=== PATIENT | male | born 1985 | race Caucasian/White ===

== ENCOUNTER 2017-03-31 03:34 | Emergency (ER) | payer BC ==
--- NOTE | 2017-03-31 04:20 | EDM.PDOC ---
ED HPI GENERAL MEDICAL PROBLEM - General Chief Complaint: Back Pain or Injury Stated Complaint: BACK PAIN Time Seen by Provider: 03/31/17 04:17 Source of Information: Reports: Patient History Limitations: Reports: No Limitations - History of Present Illness INITIAL COMMENTS - FREE TEXT/NARRATIVE: 31 year old male presents to ED with complaint of lower back pain. Pain began 3- 4 weeks. He denies any associated trauma that may have initiated the pain. Pain is shocking quality and occasionally radiates down his left leg to above the knee. Pain worsened significantly today and he is having difficulty with sitting , standing or laying down, therefore he decided to present to the ED. He denies any significant tenderness along the spine and denies any loss of bladder or bowel control. He does not have a PCP and this is his first time seeking care for the back pain. Lower Posterior Back Pain Score (Numeric/FACES): 8 - Related Data Allergies Allergy/AdvReac Type Severity Reaction Status Date / Time Penicillins Allergy Anaphylactic Verified 03/31/17 04:28 Shock Home Meds: Home Meds Orphenadrine [Norflex] 100 mg PO BID 5 Days #10 tab.er 03/31/17 [Rx] ED ROS GENERAL - Review of Systems Review Of Systems: See Below Constitutional: Reports: No Symptoms HEENT: Reports: No Symptoms Respiratory: Reports: No Symptoms Cardiovascular: Reports: No Symptoms Endocrine: Reports: No Symptoms GI/Abdominal: Reports: No Symptoms : Reports: No Symptoms Musculoskeletal: Reports: Back Pain Skin: Reports: No Symptoms Neurological: Reports: No Symptoms Psychiatric: Reports: No Symptoms Hematologic/Lymphatic: Reports: No Symptoms Immunologic: Reports: No Symptoms ED EXAM,LOWER BACK PAIN/INJURY - Physical Exam Exam: See Below General Appearance: Alert, WD/WN Eye Exam: Bilateral Eye: PERRL Ears: Normal External Exam, Normal Canal, Hearing Grossly Normal, Normal TMs Nose: Normal Inspection, Normal Mucosa, No Blood Throat/Mouth: Normal Inspection, Normal Oropharynx, No Airway Compromise Head: Atraumatic, Normocephalic Neck: Normal Inspection, Supple, Non-Tender, Full Range of Motion Respiratory/Chest: No Respiratory Distress, Lungs Clear, Normal Breath Sounds, No Accessory Muscle Use, Chest Non-Tender Cardiovascular: Normal Peripheral Pulses, Regular Rate, Rhythm, No JVD GI/Abdominal: Normal Bowel Sounds, Soft, Non-Tender Back Exam: Other (pain with lumbar flexion. SLR negative BL. mild paravertebral tenderness BL. no palpable step-offs. ) Extremities: Normal Inspection, Normal Capillary Refill Neurological: Alert, Normal Mood/Affect, Normal Dorsiflexion, CN II-XII Intact, Normal Plantar Flexion, Normal Gait, Normal Reflexes, No Motor/Sensory Deficits , Oriented x 3 Skin Exam: Warm, Dry, Intact Lymphatic: No Adenopathy Course - Vital Signs Last Recorded V/S: Last Vital Signs Temp 36.8 C 03/31/17 04:18 Pulse 68 03/31/17 04:18 Resp 16 03/31/17 04:18 BP 109/69 03/31/17 04:18 Pulse Ox 96 03/31/17 04:18 - Orders/Labs/Meds Orders: Active Orders 24 hr Category Date Time Status Lumbar Spine 2 or 3V [CR] Stat Exams 03/31/17 04:38 Taken Orphenadrine [Norflex] Med 03/31/17 04:30 Active 60 mg IM Q12H Medication Orders Orphenadrine Citrate (Norflex) 60 mg IM Q12H ARYA Last Admin: 03/31/17 04:54 Dose: Not Given Meds: Medications Generic Name Dose Route Start Last Admin Trade Name Freq PRN Reason Stop Dose Admin Orphenadrine Citrate 60 mg 03/31/17 04:30 03/31/17 04:54 Norflex IM Not Given Q12H ARYA Discontinued Medications Generic Name Dose Route Start Last Admin Trade Name Freq PRN Reason Stop Dose Admin Ketorolac Tromethamine 30 mg 03/31/17 04:27 03/31/17 04:54 Toradol IM 03/31/17 04:28 Not Given ONETIME ONE Departure - Departure Time of Disposition: 06:21 Disposition: Home, Self-Care 01 Condition: Good Clinical Impression: Sciatica Acute lumbar myofascial strain Qualifiers: Encounter type: initial encounter Qualified Code(s): S39.012A - Strain of muscle, fascia and tendon of lower back, initial encounter - Discharge Information Prescriptions: Orphenadrine [Norflex] 100 mg PO BID 5 Days #10 tab.er Instructions: Sciatica, [id number], Back Pain, Adult, [id number] Referrals: PCP,None [Primary Care Provider] - Forms: ED Department Discharge Additional Instructions: The following information is given to patients seen in the emergency department who are being discharged to home. This information is to outline your options for follow-up care. We provide all patients seen in our emergency department with a follow-up referral. The need for follow-up, as well as the timing and circumstances, are variable depending upon the specifics of your emergency department visit. If you don't have a primary care physician on staff, we will provide you with a referral. We always advise you to contact your personal physician following an emergency department visit to inform them of the circumstance of the visit and for follow-up with them and/or the need for any referrals to a consulting specialist. The emergency department will also refer you to a specialist when appropriate. This referral assures that you have the opportunity for followup care with a specialist. All of these measure are taken in an effort to provide you with optimal care, which includes your followup. Under all circumstances we always encourage you to contact your private physician who remains a resource for coordinating your care. When calling for followup care, please make the office aware that this follow-up is from your recent emergency room visit. If for any reason you are refused follow-up, please contact the [facility] emergency department at and asked to speak to the emergency department charge nurse. - Problem List Review Problem List Initiated/Reviewed/Updated: Yes - My Orders Last 24 Hours: My Active Orders 03/31/17 04:30 Orphenadrine [Norflex] 60 mg IM Q12H - Assessment/Plan Last 24 Hours: My Active Orders 03/31/17 04:30 Orphenadrine [Norflex] 60 mg IM Q12H Plan: Diagnostics: Lumbar XR Therapeutics: Toradol 30 mg IM single dose, Orphenadrine 60 mg IM single dose Assessment: 1. Acute Lumbosacral Strain -no visible spinal deformities, no spinal tenderness -no loss of bladder/bowel control -no history of trauma -Lumbar XR shows no acute changes 2. Sciatica, secondary to #1 Plan: Provided patient education and reassurance. Explained natural course of condition. Recommended he avoid prolonged immobilization. Prescribed Orphenadrine 100 mg PO BID for 5 days. Recommended following-up with PCP for rferral to PT if no improvement of symptoms within 1-2 weeks. Recommended Using OTC NSAID's or Acetaminophen for pain control.
[2017-03-31] MEDS ORDERED: Ketorolac 30 MG/ML SDV IM ONE (04:27)
--- NOTE | 2017-03-31 10:04 | CR ---
EXAM DATE: 03/31/17 PATIENT'S AGE: 31 Patient: HOA ENCISO Facility: [place], [place] Site . Site : 1985 Study: XRay Spine Lumbar [id number] 5:46:08 AM Ordering Physician: Doctor Roy Final Report: INDICATION: Low back pain TECHNIQUE: Lumbar spine 3 view. COMPARISON: None FINDINGS: Bones: Alignment is normal. No fractures or significant bone lesions. Joints: Disc spaces and facets are unremarkable. Soft tissues: Unremarkable. IMPRESSION: Unremarkable lumbar spine. Dictated by Mirta Valderrama MD @ Mar 31 2017 6:13AM (Electronic Signature) Report Signed by Proxy. MIGUEL ANGEL
== END 2017-03-31 06:40 | disposition home or self-care (01) ==
LOC: MW.ED 03:34
DX: S39.012A Strain of muscle, fascia and tendon of lower back, initial encounter (principal); M54.40 Lumbago with sciatica, unspecified side; Z88.0 Allergy status to penicillin; X58.XXXA Exposure to other specified factors, initial encounter
CPT/HCPCS: 72100; 72100-26; 99283; 99284

== ENCOUNTER 2017-06-20 02:23 | Emergency (ER) | payer BC ==
--- NOTE | 2017-06-20 02:36 | EDM.PDOC ---
ED HPI GENERAL MEDICAL PROBLEM - General Stated Complaint: BACK PAIN Time Seen by Provider: 06/20/17 02:35 Source of Information: Reports: Patient History Limitations: Reports: No Limitations - History of Present Illness INITIAL COMMENTS - FREE TEXT/NARRATIVE: HISTORY AND PHYSICAL: History of present illness: [31-year-old male presenting in emergency department with chief complaint of lower back pain radiating into his left lower extremity. Patient states that he has had intermittent back pain for many years. He has been once told he has sciatica. States it today came in because he had significantly more pain and was having difficulty with sleeping and walking. Pain is primarily located in the left lumbar sparing radiating into the posterior aspect of the left leg down to the left calf. He denies any bowel or bladder incontinence. Denies any decreased strength or sensation. He has no other symptoms and currently denies any chest pain, palpitations, shortness breath, syncopal episodes, or focal neurologic deficits.] Review of systems: As per history of present illness and below otherwise all systems reviewed and negative. Past medical history: As per history of present illness and as reviewed below otherwise noncontributory. Surgical history: As per history of present illness and as reviewed below otherwise noncontributory. Social history: No reported history of drug or alcohol abuse. Family history: As per history of present illness and as reviewed below otherwise noncontributory. Physical exam: HEENT: Atraumatic, normocephalic, pupils reactive, negative for conjunctival pallor or scleral icterus, mucous membranes moist, throat clear, neck supple, nontender, trachea midline. Lungs: Clear to auscultation, breath sounds equal bilaterally, chest nontender. Heart: S1S2, regular, negative for clicks, rubs, or JVD. Abdomen: Soft, nondistended, nontender. Negative for masses or hepatosplenomegaly. Negative for costovertebral tenderness. Pelvis: Stable nontender. Genitourinary: Deferred. Rectal: Deferred. Extremities: Atraumatic, negative for cords or calf pain. Neurovascular unremarkable. Neuro: Awake, alert, oriented. Cranial nerves II through XII unremarkable. Cerebellum unremarkable. Motor and sensory unremarkable throughout. Exam nonfocal. Diagnostics: [] Therapeutics: [Portable 6 mg IM] Impression: [Lumbar back pain/sciatica] Plan: [Patient was given 60 mg Toradol IM as well as a prescription for Flexeril. He was told to follow-up with primary care physician and that he should participate in physical therapy once he is established with a primary care physician.] - Related Data Allergies Allergy/AdvReac Type Severity Reaction Status Date / Time Penicillins Allergy Anaphylactic Verified 03/31/17 04:28 Shock Home Meds: Home Meds Orphenadrine [Norflex] 100 mg PO BID 5 Days #10 tab.er 03/31/17 [Rx] Cyclobenzaprine [Flexeril] 10 mg PO TID #12 tab 06/20/17 [Rx] Past Medical History Other Cardiovascular History: Some sort of cardiac issue is unclear as to wha it is "[place]" Other Musculoskeletal History: Right ankle sugery X 3 Social & Family History - Tobacco Use Used Tobacco, but Quit: No Second Hand Smoke Exposure: No - Caffeine Use Caffeine Use: Reports: Soda - Recreational Drug Use Recreational Drug Use: No ED ROS GENERAL - Review of Systems Review Of Systems: See Below ED EXAM, GENERAL - Physical Exam Exam: See Below Course - Orders/Labs/Meds Meds: Medications Discontinued Medications Generic Name Dose Route Start Last Admin Trade Name Freq PRN Reason Stop Dose Admin Ketorolac Tromethamine 60 mg 06/20/17 02:46 Toradol IM 06/20/17 02:47 ONETIME ONE Departure - Departure Time of Disposition: 02:59 Disposition: Home, Self-Care 01 Condition: Good Clinical Impression: Sciatica - Discharge Information Prescriptions: Cyclobenzaprine [Flexeril] 10 mg PO TID #12 tab Instructions: Back Pain, Adult, Sciatica, Sciatica, [id number] Referrals: PCP,None [Primary Care Provider] -
[2017-06-20] MEDS ORDERED: Ketorolac 60 MG/2 ML SDV IM ONE (02:46)
== END 2017-06-20 03:35 | disposition home or self-care (01) ==
LOC: MW.ED 02:23
DX: M54.42 Lumbago with sciatica, left side (principal); Z88.0 Allergy status to penicillin
CPT/HCPCS: 96372; 99283; J1885

== ENCOUNTER 2017-09-30 17:00 | Emergency (ER) | payer BC ==
[2017-09-30] MEDS ORDERED: Sodium Chloride 0.9% 10 ML Syringe FLUSH PRN (17:08)
[2017-09-30] MEDS ORDERED: Sodium Chloride 0.9% 2.5 ML Syringe FLUSH PRN (17:08)
[2017-09-30] MEDS ORDERED: Aspirin 325 MG Tab PO ONE (17:26)
[2017-09-30 17:57] LABS: CHLORIDE,CL 102 mmol/L (98-107); SODIUM,NA 137 mmol/L (136-148)
--- NOTE | 2017-09-30 18:15 | EDM.PDOC ---
ED HPI GENERAL MEDICAL PROBLEM - General Chief Complaint: Neuro Symptoms/Deficits Stated Complaint: CHEST PAIN, DIZZY, SHAKY Time Seen by Provider: 09/30/17 17:09 Source of Information: Reports: Patient History Limitations: Reports: No Limitations - History of Present Illness INITIAL COMMENTS - FREE TEXT/NARRATIVE: HISTORY AND PHYSICAL: [] 32-year-old male patient who presented initially chest pain dizziness History of Present Illness: []This started approximately half hour prior to coming to the emergency room he had just gotten off. Was eating a hamburger and driving Extreme vertigo with turning his head Review of Systems: As per history of present illness and below otherwise all systems reviewed and negative. Past medical history: As per history of present illness and as reviewed below otherwise noncontributory. Surgical history: As per history of present illness and as reviewed below otherwise noncontributory. Social history: No reported history of drug or alcohol abuse. Family history: As per history of present illness and as reviewed below otherwise noncontributory. Physical exam: Alert oriented gentleman who is speaking well in full sentences without shortness of breath he is nontoxic in appearance He is avoiding turning his head while speaking HEENT: Atraumatic, normocehpalic, pupils reactive, negative for conjunctival pallor or scleral icterus, mucous membranes moist, throat clear, neck supple, nontender, trachea midline. Tympanic membrane with effusion on the left bubbles are visualized no erythema Lungs: Clear to auscultation, breath sounds equal bilaterally, chest non tender. Heart: S1S2, regular, negative for clicks, rubs, or JVD. Abdomen: Soft, nondistended, nontender. Negative for masses or hepatossplenmegaly. Negative for costovertebral tenderness. Pelvis: Stable nontender. Genitourinary: Deferred. Rectal: Deferred Extremities: Atraumatic, negative for cords or calf pain. Neurovascular unremarkable. Neuro: Awake, alert, oriented. Cranial nerves II through XII unremarkable. Cerebellum unremarkable. Motor and sensory unremarkable throughout. Exam nonfocal. Discussed with the patient that his EKG shows tachycardia rhythm. Discussed that the troponin level was elevated. At this level can be elevated for other conditions however at this time he needs to be monitored closely have asked that he except a transfer to [facility] for cardiology is available. Patient is agreeable to this course of action he is quite anxious Discussed this case with Dr. Neri Rudd at [facility] who has accepted this patient for transfer. Question Dr. Rudd if you should give Lovenox and in case this person has a pericarditis he requested I not give Lovenox. Diagnostics: []CBC CMP troponin amylase lipase UA urine drug screen EKG chest x-ray Therapeutics: []Normal saline Aspirin Impression: []Vertigo Elevated troponin Plan: []Transfer per EMS to [facility] Definitive disposition and diagnosis as appropriate pending reevaluation and review of above. Onset: Today, Sudden - Related Data Allergies Allergy/AdvReac Type Severity Reaction Status Date / Time Penicillins Allergy Anaphylactic Verified 09/30/17 17:10 Shock Home Meds: Home Meds . [No Known Home Meds] 09/30/17 [History] Past Medical History - Past Health History Medical/Surgical History: Denies Medical/Surgical History HEENT History: Reports: None Cardiovascular History: Reports: None Other Cardiovascular History: Some sort of cardiac issue is unclear as to what it is "[place]", pt states this is a hole in his heart Respiratory History: Reports: None Gastrointestinal History: Reports: None Genitourinary History: Reports: None Other Musculoskeletal History: Right ankle sugery X 3 Neurological History: Reports: None Psychiatric History: Reports: None Endocrine/Metabolic History: Reports: None - Infectious Disease History Infectious Disease History: Reports: None - Past Surgical History Male Surgical History: Reports: None Social & Family History - Family History Family Medical History: Noncontributory - Tobacco Use Smoking Status *Q: Never Smoker Years of Tobacco use: 4 Packs/Tins Daily: 1 - Caffeine Use Caffeine Use: Reports: Soda - Recreational Drug Use Recreational Drug Use: No ED ROS GENERAL - Review of Systems Review Of Systems: ROS reveals no pertinent complaints other than HPI. ED EXAM, NEURO - Physical Exam Exam: See Below (see dictation) EKG INTERPRETATION EKG Date: 09/30/17 Rhythm: Other (Sinus tachycardia) Rate (Beats/Min): 101 Comparison: NA - No Prior EKG Course - Vital Signs Last Recorded V/S: Last Vital Signs Temp 36.8 C 09/30/17 17:05 Pulse 99 09/30/17 17:05 Resp 18 09/30/17 17:05 BP 154/86 H 09/30/17 17:05 Pulse Ox 97 09/30/17 17:05 - Orders/Labs/Meds Orders: Active Orders 24 hr Category Date Time Status Cardiac Monitoring [RC] . DIRECTED Care 09/30/17 17:08 Active EKG 12 Lead [EKG Documentation Completion] [RC] STAT Care 09/30/17 17:07 Active EKG Documentation Completion [RC] STAT Care 09/30/17 17:08 Active Oxygen Therapy, ED [RC] ASDIRECTED Care 09/30/17 17:08 Active Chest 1V Frontal [CR] Stat Exams 09/30/17 17:09 Ordered Sinus Comp Min 3V [CR] Stat Exams 09/30/17 17:45 Ordered CULTURE STREP A CONFIRMATION [RM] Stat Lab 09/30/17 17:30 Results CULTURE URINE [RM] Stat Lab 09/30/17 17:30 Ordered DRUG SCREEN, URINE [URCHEM] Stat Lab 09/30/17 17:30 Ordered STREP SCRN A RAPID W CULT CONF [RM] Stat Lab 09/30/17 17:30 Ordered UA W/MICROSCOPIC [URIN] Stat Lab 09/30/17 17:30 Ordered Sodium Chloride 0.9% [Saline Flush] Med 09/30/17 17:08 Active 10 ml FLUSH ASDIRECTED PRN Sodium Chloride 0.9% [Saline Flush] Med 09/30/17 17:08 Active 2.5 ml FLUSH ASDIRECTED PRN Saline Lock Insert [OM.PC] Stat Oth 09/30/17 17:08 Ordered Medication Orders Sodium Chloride (Saline Flush) 10 ml FLUSH ASDIRECTED PRN PRN Reason: Keep Vein Open Sodium Chloride (Saline Flush) 2.5 ml FLUSH ASDIRECTED PRN PRN Reason: Keep Vein Open Labs: Laboratory Tests 09/30/17 09/30/17 09/30/17 Range/Units 17:18 17:18 17:18 WBC 7.49 (4.0-11.0) K/uL RBC 5.49 (4.50-5.90) M/uL Hgb 16.0 (13.0-17.0) g/dL Hct 46.0 (38.0-50.0) % MCV 83.8 (80.0-98.0) fL MCH 29.1 (27.0-32.0) pg MCHC 34.8 (31.0-37.0) g/dL RDW Std Deviation 37.6 (28.0-62.0) fl RDW Coeff of Nelson 12 (11.0-15.0) % Plt Count 237 (150-400) K/uL MPV 9.50 (7.40-12.00) fL Neut % (Auto) 60.4 (48.0-80.0) % Lymph % (Auto) 29.6 (16.0-40.0) % Hendry % (Auto) 8.0 (0.0-15.0) % Eos % (Auto) 1.9 (0.0-7.0) % Baso % (Auto) 0.1 (0.0-1.5) % Neut # (Auto) 4.5 (1.4-5.7) K/uL Lymph # (Auto) 2.2 (0.6-2.4) K/uL Hendry # (Auto) 0.6 (0.0-0.8) K/uL Eos # (Auto) 0.1 (0.0-0.7) K/uL Baso # (Auto) 0.0 (0.0-0.1) K/uL Nucleated RBC % 0.0 /100WBC Nucleated RBCs # 0 K/uL INR Sodium 137 (136-148) mmol/L Potassium 3.8 (3.5-5.1) mmol/L Chloride 102 (98-107) mmol/L Carbon Dioxide 26.0 (21.0-32.0) mmol/L BUN 14 (7.0-18.0) mg/dL Creatinine 1.1 (0.8-1.3) mg/dL Est Cr Clr Drug Dosing 94.14 mL/min Estimated GFR (MDRD) > 60.0 ml/min Glucose 137 H (74-106) mg/dL Calcium 8.5 (8.5-10.1) mg/dL Total Bilirubin 0.8 (0.2-1.0) mg/dL AST 36 (15-37) IU/L ALT 54 (14-63) IU/L Alkaline Phosphatase 54 (46-116) U/L Ammonia <17 L (19-54) ug/dL Troponin I 0.161 H* (0.000-0.056) ng/mL Total Protein 8.0 (6.4-8.2) g/dL Albumin 3.9 (3.4-5.0) g/dL Globulin 4.1 H (2.0-3.5) g/dL Albumin/Globulin Ratio 1.0 L (1.3-2.8) Amylase 22 L (25-115) U/L Lipase 87 (73-393) U/L Urine Color Urine Appearance Urine pH (5.0-8.0) Ur Specific Randolph (1.001-1.035) Urine Protein (NEGATIVE) mg/dL Urine Glucose (UA) (NEGATIVE) mg/dL Urine Ketones (NEGATIVE) mg/dL Urine Occult Blood (NEGATIVE) Urine Nitrite (NEGATIVE) Urine Bilirubin (NEGATIVE) Urine Urobilinogen (<2.0) EU/dL Ur Leukocyte Esterase (NEGATIVE) Urine Opiates Screen (NEGATIVE) Ur Oxycodone Screen (NEGATIVE) Urine Methadone Screen (NEGATIVE) Ur Barbiturates Screen (NEGATIVE) Ur Phencyclidine Scrn (NEGATIVE) Ur Amphetamine Screen (NEGATIVE) U Methamphetamines Scrn (NEGATIVE) U Benzodiazepines Scrn (NEGATIVE) U Cocaine Metab Screen (NEGATIVE) U Marijuana (THC) Screen (NEGATIVE) 09/30/17 09/30/17 09/30/17 Range/Units 17:18 17:30 17:30 WBC (4.0-11.0) K/uL RBC (4.50-5.90) M/uL Hgb (13.0-17.0) g/dL Hct (38.0-50.0) % MCV (80.0-98.0) fL MCH (27.0-32.0) pg MCHC (31.0-37.0) g/dL RDW Std Deviation (28.0-62.0) fl RDW Coeff of Nelson (11.0-15.0) % Plt Count (150-400) K/uL MPV (7.40-12.00) fL Neut % (Auto) (48.0-80.0) % Lymph % (Auto) (16.0-40.0) % Hendry % (Auto) (0.0-15.0) % Eos % (Auto) (0.0-7.0) % Baso % (Auto) (0.0-1.5) % Neut # (Auto) (1.4-5.7) K/uL Lymph # (Auto) (0.6-2.4) K/uL Hendry # (Auto) (0.0-0.8) K/uL Eos # (Auto) (0.0-0.7) K/uL Baso # (Auto) (0.0-0.1) K/uL Nucleated RBC % /100WBC Nucleated RBCs # K/uL INR 1.05 Sodium (136-148) mmol/L Potassium (3.5-5.1) mmol/L Chloride (98-107) mmol/L Carbon Dioxide (21.0-32.0) mmol/L BUN (7.0-18.0) mg/dL Creatinine (0.8-1.3) mg/dL Est Cr Clr Drug Dosing mL/min Estimated GFR (MDRD) ml/min Glucose (74-106) mg/dL Calcium (8.5-10.1) mg/dL Total Bilirubin (0.2-1.0) mg/dL AST (15-37) IU/L ALT (14-63) IU/L Alkaline Phosphatase (46-116) U/L Ammonia (19-54) ug/dL Troponin I (0.000-0.056) ng/mL Total Protein (6.4-8.2) g/dL Albumin (3.4-5.0) g/dL Globulin (2.0-3.5) g/dL Albumin/Globulin Ratio (1.3-2.8) Amylase (25-115) U/L Lipase (73-393) U/L Urine Color YELLOW Urine Appearance CLEAR Urine pH 6.5 (5.0-8.0) Ur Specific Randolph 1.020 (1.001-1.035) Urine Protein NEGATIVE (NEGATIVE) mg/dL Urine Glucose (UA) NEGATIVE (NEGATIVE) mg/dL Urine Ketones NEGATIVE (NEGATIVE) mg/dL Urine Occult Blood NEGATIVE (NEGATIVE) Urine Nitrite NEGATIVE (NEGATIVE) Urine Bilirubin NEGATIVE (NEGATIVE) Urine Urobilinogen 0.2 (<2.0) EU/dL Ur Leukocyte Esterase NEGATIVE (NEGATIVE) Urine Opiates Screen NEGATIVE (NEGATIVE) Ur Oxycodone Screen NEGATIVE (NEGATIVE) Urine Methadone Screen NEGATIVE (NEGATIVE) Ur Barbiturates Screen NEGATIVE (NEGATIVE) Ur Phencyclidine Scrn NEGATIVE (NEGATIVE) Ur Amphetamine Screen NEGATIVE (NEGATIVE) U Methamphetamines Scrn NEGATIVE (NEGATIVE) U Benzodiazepines Scrn NEGATIVE (NEGATIVE) U Cocaine Metab Screen NEGATIVE (NEGATIVE) U Marijuana (THC) Screen NEGATIVE (NEGATIVE) Meds: Medications Generic Name Dose Route Start Last Admin Trade Name Freq PRN Reason Stop Dose Admin Sodium Chloride 10 ml 09/30/17 17:08 Saline Flush FLUSH ASDIRECTED PRN Keep Vein Open Sodium Chloride 2.5 ml 09/30/17 17:08 Saline Flush FLUSH ASDIRECTED PRN Keep Vein Open Discontinued Medications Generic Name Dose Route Start Last Admin Trade Name Freq PRN Reason Stop Dose Admin Aspirin 325 mg 09/30/17 17:26 09/30/17 17:47 Aspirin PO 09/30/17 17:27 325 mg ONETIME ONE Administration Departure - Departure Time of Disposition: 18:29 Disposition: DC/Tfer to Acute Hospital 02 Condition: Good Clinical Impression: Elevated troponin - Discharge Information Referrals: PCP,None [Primary Care Provider] - Additional Instructions: The following information is given to patients seen in the emergency department who are being discharged to home. This information is to outline your options for follow-up care. We provide all patients seen in our emergency department with a follow-up referral. The need for follow-up, as well as the timing and circumstances, are variable depending upon the specifics of your emergency department visit. If you don't have a primary care physician on staff, we will provide you with a referral. We always advise you to contact your personal physician following an emergency department visit to inform them of the circumstance of the visit and for follow-up with them and/or the need for any referrals to a consulting specialist. The emergency department will also refer you to a specialist when appropriate. This referral assures that you have the opportunity for followup care with a specialist. All of these measure are taken in an effort to provide you with optimal care, which includes your followup. Under all circumstances we always encourage you to contact your private physician who remains a resource for coordinating your care. When calling for followup care, please make the office aware that this follow-up is from your recent emergency room visit. If for any reason you are refused follow-up, please contact the [facility] emergency department at and asked to speak to the emergency department charge nurse. - My Orders Last 24 Hours: My Active Orders 09/30/17 17:08 Cardiac Monitoring [RC] . DIRECTED EKG Documentation Completion [RC] STAT Oxygen Therapy, ED [RC] ASDIRECTED Sodium Chloride 0.9% [Saline Flush] 10 ml FLUSH ASDIRECTED PRN Sodium Chloride 0.9% [Saline Flush] 2.5 ml FLUSH ASDIRECTED PRN Saline Lock Insert [OM.PC] Stat 09/30/17 17:09 Chest 1V Frontal [CR] Stat 09/30/17 17:30 CULTURE STREP A CONFIRMATION [RM] Stat CULTURE URINE [RM] Stat DRUG SCREEN, URINE [URCHEM] Stat STREP SCRN A RAPID W CULT CONF [RM] Stat UA W/MICROSCOPIC [URIN] Stat 09/30/17 17:45 Sinus Comp Min 3V [CR] Stat - Assessment/Plan Last 24 Hours: My Active Orders 09/30/17 17:08 Cardiac Monitoring [RC] . DIRECTED EKG Documentation Completion [RC] STAT Oxygen Therapy, ED [RC] ASDIRECTED Sodium Chloride 0.9% [Saline Flush] 10 ml FLUSH ASDIRECTED PRN Sodium Chloride 0.9% [Saline Flush] 2.5 ml FLUSH ASDIRECTED PRN Saline Lock Insert [OM.PC] Stat 09/30/17 17:09 Chest 1V Frontal [CR] Stat 09/30/17 17:30 CULTURE STREP A CONFIRMATION [RM] Stat CULTURE URINE [RM] Stat DRUG SCREEN, URINE [URCHEM] Stat STREP SCRN A RAPID W CULT CONF [RM] Stat UA W/MICROSCOPIC [URIN] Stat 09/30/17 17:45 Sinus Comp Min 3V [CR] Stat
--- NOTE | 2017-10-01 15:12 | CR ---
EXAM DATE: 09/30/17 PATIENT'S AGE: 32 Patient: HOA ENCISO Facility: [place], [place] Site . Site : [id number] Study: XRay Chest [id number]/28/2018 5:49:28 PM Ordering Physician: Doctor Roy Final Report: INDICATION: Dizziness TECHNIQUE: Single view chest. FINDINGS: The lungs are clear. The heart, mediastinum and pulmonary vessels are of normal size. There is no evidence of pleural disease. IMPRESSION: Negative chest. Dictated by Kriss Martinez MD @ Sep 30 2017 6:06PM (Electronic Signature) Report Signed by Proxy. MIGUEL ANGEL
== END 2017-09-30 19:15 ==
LOC: MW.ED 17:00
DX: R42 Dizziness and giddiness (principal); R79.89 Other specified abnormal findings of blood chemistry; Z88.0 Allergy status to penicillin
CPT/HCPCS: 36415; 71045; 80053; 80305; 81001; 82140; 82150; 83690; 84484; 85025; 85610; 87081; 87086; 87880; 93005; 99285; A9270; 99284

== ENCOUNTER 2019-05-13 20:17 | Emergency (ER) | payer BC ==
--- NOTE | 2019-05-13 20:20 | EDM.PDOC ---
ED HPI GENERAL MEDICAL PROBLEM - General Chief Complaint: ENT Problem Stated Complaint: sinus Time Seen by Provider: 05/13/19 20:19 Source of Information: Reports: Patient History Limitations: Reports: No Limitations - History of Present Illness INITIAL COMMENTS - FREE TEXT/NARRATIVE: HISTORY AND PHYSICAL: History of present illness: Patient is a 33-year-old male who presents to the emergency room with complaints of right upper gumline/cheek tenderness and swelling. He states he does have "a bad tooth at the site" but the tooth itself has not been bothering him. He is concerned he may have a dental abscess or sinusitis. Patient denies any fever, chills, headache, change in vision, syncope or near syncope. Denies any chest pain, back pain, shortness of breath or cough. Denies any GI or symptoms. Patient has been eating and drinking appropriately. Review of systems: As per history of present illness and below otherwise all systems reviewed and negative. Past medical history: As per history of present illness and as reviewed below otherwise noncontributory. Surgical history: As per history of present illness and as reviewed below otherwise noncontributory. Social history: See social history for further information Family history: As per history of present illness and as reviewed below otherwise noncontributory. Physical exam: General: Well-developed and well-nourished 33-year-old male. Alert and oriented. Nontoxic-appearing and in no acute distress. HEENT: Atraumatic, normocephalic, pupils equal and reactive bilaterally, negative for conjunctival pallor or scleral icterus, mucous membranes moist, TMs normal bilaterally, throat clear, does have dental decay noted at #5 and #4 with mild gumline swelling and soft tissue swelling visible to the upper cheek, neck supple, nontender, trachea midline. No drooling or trismus noted. No meningeal signs. No hot potato voice noted. Lungs: Clear to auscultation, breath sounds equal bilaterally, chest nontender. Heart: S1S2, regular rate and rhythm without overt murmur Abdomen: Soft, nondistended, nontender. Skin: Intact, warm, dry. No lesions or rashes noted. Extremities: Atraumatic, moves all extremities per self without difficulty or deficits, negative for cords or calf pain. Neurovascular unremarkable. Neuro: Awake, alert, oriented. Cranial nerves II through XII unremarkable. Cerebellum unremarkable. Motor and sensory unremarkable throughout. Exam nonfocal. Notes: Patient has penicillin allergy will use clindamycin. Signs and symptoms that would prompt him to return to the emergency room were reviewed and discussed. Supportive care measures were reviewed and discussed. Voices understanding and is agreeable to plan of care. Denies any further questions or concerns at this time. Diagnostics: None Therapeutics: None Prescription: Clindamycin Impression: Dental Abscess Plan: 1. Take the antibiotic as prescribed. 2. Can alternate Tylenol and ibuprofen for pain and fever management. 3. Follow-up with your primary care provider as we discussed. Return to the ED as needed and as discussed. Definitive disposition and diagnosis as appropriate pending reevaluation and review of above. - Related Data Allergies Allergy/AdvReac Type Severity Reaction Status Date / Time Penicillins Allergy Anaphylactic Verified 05/13/19 20:36 Shock Home Meds: Home Meds Clindamycin HCl 300 mg PO TID 7 Days #21 capsule 05/13/19 [Rx] Sertraline [Zoloft] 0 tab 05/13/19 [History] Past Medical History - Past Health History Medical/Surgical History: Denies Medical/Surgical History HEENT History: Reports: None Cardiovascular History: Reports: None Other Cardiovascular History: Some sort of cardiac issue is unclear as to what it is "[place]", pt states this is a hole in his heart Respiratory History: Reports: None Gastrointestinal History: Reports: None Genitourinary History: Reports: None Other Musculoskeletal History: Right ankle sugery X 3 Neurological History: Reports: None Psychiatric History: Reports: None Endocrine/Metabolic History: Reports: None - Infectious Disease History Infectious Disease History: Reports: None - Past Surgical History Male Surgical History: Reports: None Social & Family History - Family History Family Medical History: Noncontributory - Caffeine Use Caffeine Use: Reports: Soda ED ROS ENT - Review of Systems Review Of Systems: Comprehensive ROS is negative, except as noted in HPI. ED EXAM, ENT - Physical Exam Exam: See Below (See dictation) Course - Vital Signs Last Recorded V/S: Last Vital Signs Temp 97.5 F 05/13/19 20:37 Pulse 95 05/13/19 20:37 Resp 16 05/13/19 20:37 BP 140/81 05/13/19 20:37 Pulse Ox 98 05/13/19 20:37 Departure - Departure Time of Disposition: 20:40 Disposition: Home, Self-Care 01 Clinical Impression: Dental abscess - Discharge Information Prescriptions: Clindamycin HCl 300 mg PO TID 7 Days #21 capsule Instructions: Dental Abscess, [id number] Referrals: PCP,Not In Area [Primary Care Provider] - Forms: ED Department Discharge Additional Instructions: The following information is given to patients seen in the emergency department who are being discharged to home. This information is to outline your options for follow-up care. We provide all patients seen in our emergency department with a follow-up referral. The need for follow-up, as well as the timing and circumstances, are variable depending upon the specifics of your emergency department visit. If you don't have a primary care physician on staff, we will provide you with a referral. We always advise you to contact your personal physician following an emergency department visit to inform them of the circumstance of the visit and for follow-up with them and/or the need for any referrals to a consulting specialist. The emergency department will also refer you to a specialist when appropriate. This referral assures that you have the opportunity for follow-up care with a specialist. All of these measure are taken in an effort to provide you with optimal care, which includes your follow-up. Under all circumstances we always encourage you to contact your private physician who remains a resource for coordinating your care. When calling for follow-up care, please make the office aware that this follow-up is from your recent emergency room visit. If for any reason you are refused follow-up, please contact the [facility] Emergency Department at and asked to speak to the emergency department charge nurse. [facility] [address] [place] [id number] [address] [address] 1. Take the antibiotic as prescribed. 2. Can alternate Tylenol and ibuprofen for pain and fever management. 3. Follow-up with your primary care provider as we discussed. Return to the ED as needed and as discussed. Sepsis Event Note - Focused Exam Vital Signs: Vital Signs Temp Pulse Resp BP Pulse Ox 05/13/19 20:37 97.5 F 95 16 140/81 98 Date Exam was Performed: 05/13/19 Time Exam was Performed: 21:52
== END 2019-05-13 20:52 | disposition home or self-care (01) ==
LOC: MW.ED 20:17
DX: K04.7 Periapical abscess without sinus (principal); K02.9 Dental caries, unspecified; Z88.0 Allergy status to penicillin; Z79.899 Other long term (current) drug therapy
CPT/HCPCS: 99282; 99283